=== PATIENT | male | born 1985 | race Caucasian/White ===

== ENCOUNTER 2020-09-26 23:49 | Emergency (ER) | payer OTHER ==
[~2020-09-26] VITALS: Ht 175.3 cm; Wt 72.6 kg
[2020-09-27] MEDS ORDERED: AMOXICILLIN 50500 M1 PO (00:09)
[2020-09-27] MEDS ORDERED: HYDROCODON-ACE1 EAC8 PO (00:09)
[2020-09-27 00:18] VITALS: BP 140/90
== END 2020-09-27 00:25 | disposition home or self-care (01) ==
LOC: M.ERS 23:49
DX: K02.9 Dental caries, unspecified (principal)